=== PATIENT | male | born 1960 | race Caucasian/White ===

== ENCOUNTER → 2018-04-07 | Outpatient (CLI) | payer BC ==
[~2018-04-07] MED LIST: ACETAMINOPHEN500 M1 PO; ATIVAN1 MG PO; DICLOFENAC SODI75 MG PO; FLEXERIL; NEURONTIN 300M300 M2 PO; PERCOCET 5-3251 EACH PO; PREDNISONE 10 M10 M1; VALIUM5 MG PO; VICODIN 5-5001 EACH
--- NOTE | ~2018-04-07 | PAINCON ---
[address] [address] PAIN MANAGEMENT CONSULTATION Name: GEORGEOC Stephanie Room: [facility] Davin#: [id number] Admission: 04/07/18 Attend Phys: Richard Estrada MD Discharge: Date of : 56 Report #: [id number] THIS REPORT FOR: //name// CC: Kin Estrada DATE OF SERVICE: 04/07/2018 CHIEF COMPLAINT: Pain in the left leg with, numbness, weakness, tenderness and unable to stand or work because of the pain. HISTORY: The patient is a 57-year-old gentleman who has returned to the pain clinic for evaluation. The patient noted pain and discomfort in February on about the sixth. He notes that the pain continued to build. It involves his low back on the left side. Pain radiates down the left portion of his leg, has numbness around his knee and experiences weakness as well. Also, has some pain in the upper left groin area. He had pain in his back in 2009. At that time, he underwent a series of epidural steroid injection and noted improvement. He was told at that time that he had herniated disk. Over the last 2 weeks, he has noticed an escalation of pain and discomfort. He has noticed that the pain since that time continues to increase. He is feeling pain down the left leg with numbness and tingling. Left knee area is painful. Also, has some pain and discomfort around the left groin area in the upper portion of the left side of his leg. Denies any outward trauma. Notes the pain is worse when he is standing and going from a sitting to a bending position. If he bends over, he notes that the pain is quite problematic. Pain improves when he is lying on his right side or on his back. Describes it as steady, rhythmic, aching, throbbing and stabbing. Rates it as a 5-6 at this juncture. On average, it is a 6-7. He does work in a factory setting. He states that he does quite strenuous work pushing items, which are quite heavy. ALLERGIES: No known drug allergies. CURRENT MEDICATIONS: Flexeril 10 mg one p.o. t.i.d. p.r.n., diclofenac 25 mg p.r.n., Aleve, Tylenol. PAST MEDICAL HISTORY: Lumbar radicular pain secondary to herniated disk in December 2009. Colon polyp found in the past. PAST SURGICAL HISTORY: Previous herniated disk injection in 2009. SOCIAL HISTORY: He is a [employer] worker. He has been off work since 03/03/2018 secondary to plant shutdown. Scheduled to return to work in March. REVIEW OF SYSTEMS: Questionnaire, generally good health, decreased appetite, fatigue, wears glasses, hearing loss, loss of appetite, abdominal pain, [place] [address] PAIN MANAGEMENT CONSULTATION Name: OC VAZQUEZ Room: [facility]#: [id number] Admission: 04/07/18 Attend Phys: Richard Estrada MD Discharge: Date of : 56 Report #: [id number] of muscles and joints, muscle pain and cramps, back pain, difficulty walking, numbness and tingling sensation in his lower extremities. LABORATORY DATA: MRI of the lumbar spine dated 03/10/2018: 1. L2-L3, there is a diffuse disk bulge. There is left paracentral extrusion type herniation migrating and inferiorly measuring 1.9 cm caudally, 1.2 cm transverse and 0.6 cm AP. There is also mild facet and ligamentum flavum hypertrophy. There is mild left lateral recess narrowing. There is no central stenosis. At the level of herniation, there is left lateral recess narrowing as well. Correlate this with left L3 radicular symptoms. 2. L3-L4, there is a diffuse disk bulge. There is a broad based protrusion on the right with annular fissure extends from paracentral to foramen of 0.3 cm in height. There is slight right lateral recess narrowing, correlates with right L4 radicular symptoms. There is mild bilateral foraminal narrowing of the thecal sac 1.5 cm AP. 3. L4-L5, there is a disk bulge. There is a left subarticular annular fissure. There is a right foraminal protrusion measuring 0.3 cm in height. No canal stenosis. There is moderate right and left foraminal narrowing. Thecal sac 1.5 cm. 4. L5-S1, there is a left foraminal labial or lateral protrusion with an annular fissure, there is facet hypertrophy. There is a synovial cyst on the right measuring 0.8 x 0.5 x 0.7 cm in size. This extends into the foramen, exerts mild mass effect on the exiting nerve root. There is mild right foraminal narrowing. PAIN CLINIC ASSESSMENT/PQRS: 1. History of osteoarthritis. The patient is not being treated for osteoarthritis or rheumatoid arthritis. 2. Height 5 feet 8 inches, weight 183 pounds, BMI is 27.5. 3. Vital signs: Blood pressure 128/85, heart rate 75, respiratory rate 16, room air saturation is 93%, temperature 98.4. 4. Pain intensity 10. 5. Fall risk. The patient has not fallen in the last 3 months. 6. Blood thinner. The patient is not on a blood thinning medication. 7. Hypertension. The patient is not being treated for hypertension. 8. Opioids greater than 6 weeks. The patient is not on an opioid regimen. 9. Risk assessment tool, low for opioid use. 10. Functional assessment tool. 11. Recreational drug use. The patient denies use of recreational drugs. 12. Tobacco: The patient denies use of tobacco. 13. Alcohol: The patient denies alcoholic use. PHYSICAL EXAMINATION: GENERAL: The patient is a well-developed, well-nourished white male. Appears his stated age. He is alert and oriented x 3. Affect is appropriate. [place] [address] PAIN MANAGEMENT CONSULTATION Name: OC VAZQUEZ Room: [facility]#: [id number] Admission: 04/07/18 Attend Phys: Richard Estrada MD Discharge: Date of : 56 Report #: [id number] HEENT: Normocephalic, atraumatic. Extraocular eye muscles intact. Sclerae nonicteric. Mucous membranes are moist. NECK: Without adenopathy or JVD. No bruits. LUNGS: Clear to auscultation without rhonchi or rales. EXTREMITIES: Upper extremity muscle strength judged to be 5/5 for the major muscle groups in the upper extremity. The patient is without significant scoliosis, kyphosis or lordosis. His pain and discomfort in the lower portion of his back with pain that radiates around the left buttocks and down into the L4-L5 dermatomal distribution. The patient states he has some numbness around his knee. He has been experiencing muscle spasms. States that they feel like an earthquake and can last about 20 minutes. They improve and go away. Bending and lifting can exacerbate those spasms. Has some stabbing pain in the left hip. Anselmo's sign was negative on the right, positive on the left. Deep tendon movement of the left hip cause some discomfort in the low back area on the left side. Right side was not problematic. Anterior and posterior spring tests were negative. The patient is able to stand and rise to his heels and to his toes. Forward bending to 30 degrees was limited. The patient said he could not move any further. Noted pain and discomfort in the low back and the buttocks area with some down the lateral side of his leg. Lumbar extension caused increased pain in the back area as well. Left and right lateral bending, left and right lateral rotation all had some discomfort in the left hip area. Deep tendon reflexes in the upper extremity are judged to be +2 bilaterally, trace for the brachioradialis and absent for the triceps. Deep tendon reflexes are +2 on the right knee and absent on the left knee. IMPRESSION: 1. Lumbar radiculopathy with pain and discomfort in the left leg with absent patellar reflex. Increased pain and positive straight leg raise on the left. 2. Past history of lumbar radicular pain in 2009, improved after epidural steroid injection. RECOMMENDATIONS: We discussed treatment option with the patient. Risks and benefits of an epidural steroid injection were discussed. Possible complications of the procedure were reviewed. The patient's MRI was reviewed with him and a model was used. The patient states that he understands. It appears that he has had pain in the left low back area. He is experiencing pain in the L4-L5 dermatomal distribution. At this juncture, I think it would be reasonable to proceed with an epidural steroid injection. The procedure and complications, which could include but are not limited to infection, worsening of pain, no improvement in pain, nerve damage, nerve paralysis were discussed and the patient elects to proceed. PROCEDURE NOTE: The patient was placed in the prone position. He was assisted in getting on the examination table. Fluoroscopy using anterior, posterior as well as lateral viewing were implemented. His back was sterilely prepped at the L4-L5 area. A left paracentral approach was undertaken. A 0.25% [place] [address] PAIN MANAGEMENT CONSULTATION Name: OC VAZQUEZ [id number] Admission: 04/07/18 Attend Phys: Richard Estrada MD Discharge: Date of : 56 Report #: [id number] was infiltrated with a 25-gauge needle to numb the area, then followed by a 17-gauge Tuohy with loss of resistance technique. There was no CSF, heme or paresthesia. A total of 80 mg Depo-Medrol, 40 mg triamcinolone and 2 mL of 0.25% bupivacaine was injected. The patient tolerated the procedure well. There were no complications. He remained in the pain clinic for an appropriate amount of time. The patient will also be given a script to go to physical therapy. Hopefully, his pain will continue to improve, so that he will be able to return to work in a timely fashion. We would like to thank you for letting us participate in his care. We hope he continues to improve. By: [id number]. Juno Estrada MD /nt
== END ==
LOC: M.PC 08:40
DX: M54.16 Radiculopathy, lumbar region (principal); M79.605 Pain in left leg

== ENCOUNTER → 2018-04-26 | Outpatient (CLI) | payer BC ==
--- NOTE | 2018-04-29 13:53 | PAINCON ---
[address] [address] PAIN MANAGEMENT CONSULTATION Name: GEORGEOC Stephanie Room: [facility] Davin#: [id number] Admission: 04/26/18 Attend Phys: Richard Estrada MD Discharge: Date of : 56 Report #: [id number] THIS REPORT FOR: //name// CC: Kin Estrada DATE OF SERVICE: 04/26/2018 CHIEF COMPLAINT: Here for a medication renewal. FOLLOWUP HISTORY: The patient is a 57-year-old gentleman who has been referred to the Pain Clinic for evaluation. The patient has noted pain and discomfort since about 08/24/2017. He has been experiencing pain in the low back area involving his left side. Pain radiates down into this left portion of his leg with numbness around his knee with weakness. Notes some upper left groin pain. He has undergone series of epidural steroid injections in the past back in 2009. He noted some improvement at that time. He has difficulty with carrying out activities of daily living. Bending, sitting, pushing all exacerbate his pain. 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 All of these activities such as bending, pushing, lifting heavy items have been problematic. He feels that the activities at his job, which required repetitive bending, lifting, pushing, pulling, buggies and ____ as well as lifting items greater than about 10 pounds are quite problematic at this juncture. ALLERGIES: No known drug allergies. MEDICATIONS: Flexeril 10 mg 1 p.o. t.i.d. p.r.n., diclofenac 25 mg p.r.n., Aleve, Tylenol. PAIN CLINIC ASSESSMENT/PQRS: 1. History of osteoarthritis. The patient is not being treated for osteoarthritis or rheumatoid arthritis. 2. Height 5 feet 8, weight 188 pounds, BMI is 28. 3. Vital signs: Blood pressure 146/92, heart rate 72, respiratory rate 16, room air saturation is greater than 95, temperature 98.2. 4. Fall risk. The patient has not fallen in the last 3 months. 5. Blood thinner. The patient is not on a blood thinning medication. 6. Hypertension. The patient is not being treated for hypertension. 7. Opioid greater than 6 weeks. The patient is now on opioid regimen. 8. Risk assessment tool low for opioid use. 9. Functional assessment tool. 10. Recreational drug use. The patient denies use of recreational drugs. 11. Tobacco: The patient denies use of tobacco. 12. Alcohol: The patient denies use of alcoholic beverages. PHYSICAL EXAMINATION: [place] [address] PAIN MANAGEMENT CONSULTATION Name: OC VAZQUEZ Room: [facility]#: [id number] Admission: 04/26/18 Attend Phys: Richard Estrada MD Discharge: Date of : 56 Report #: [id number] GENERAL: The patient is a well-developed, well-nourished white male. Appears his stated age. He is alert and oriented x 3. His affect is appropriate. Speech is fluent. HEENT: Normocephalic, atraumatic. Extraocular eye muscles intact. Sclerae nonicteric. Mucous membranes are moist without moist. Hearing is within normal limits. LUNGS: Clear to auscultation without rhonchi or rales. EXTREMITIES: Upper extremity muscle strength is judged to be 5/5 for the major muscle groups in the upper extremity without significant scoliosis, kyphosis or lordosis. The patient has pain and discomfort in his lower portion of his back with pain that radiates down and around his left buttock and down into the L4-L5 dermatomal distribution. The patient notes some numbness and tingling in the area of his knee. He has been experiencing muscle spasms. Describes the spasms as earthquakes. Anselmo's sign was negative on the right, positive on the left. Deep tendon reflexes. The patient has limited ability to lean forward left and right lateral bending, left and right lateral rotation are limited as well. Deep tendon reflexes are jute bag clipper +2 on the right knee and absent on the left knee. IMPRESSION: 1. Lumbar radiculopathy with pain and discomfort of the left knee with absent patellar reflex. 2. Increased pain with positive straight leg raise on the left. 3. Past history of lumbar radiculopathy in 2009, improved with epidural steroid injection. RECOMMENDATION: The patient has undergone epidural steroid injection. He returns today indicating that the pain has improved. Feels that things are about 50% better, but still problematic. Has lost strength in his left leg. He has continued pain in the left hip area. Has trouble bending his spine. He continues to practice with strengthening exercises for his lower extremity. RECOMMENDATIONS: We discussed treatment options with the patient. At this juncture, we would recommend that he refrain from repetitive bending and lifting; not lift greater than 10 pounds, refrain from pushing bodies and chondral until his pain is more controlled. He will follow up in the near future. The patient was last seen on 04/27/2018 and will return for evaluation on 05/12/2018 with the possibility of undergoing another epidural steroid injection. We would like to thank you for letting us participate in his care. We hope he continues to improve. <ELECTRONICALLY SIGNED> By: Richard Estrada MD 04/29/18 [id number]. Juno Estrada MD /nt
== END ==
LOC: M.PC 04-21 11:50
DX: M54.16 Radiculopathy, lumbar region (principal); M79.605 Pain in left leg; M19.90 Unspecified osteoarthritis, unspecified site; I10 Essential (primary) hypertension; Z79.899 Other long term (current) drug therapy

== ENCOUNTER → 2018-05-12 | Outpatient (CLI) | payer BC ==
--- NOTE | ~2018-05-12 | PAINCON ---
[address] [address] PAIN MANAGEMENT CONSULTATION Name: GEORGEOC Stephanie Room: [facility] Jin#: [id number] Admission: 05/12/18 Attend Phys: Richard Estrada MD Discharge: Date of : 56 Report #: [id number] THIS REPORT FOR: //name// CC: Kin Estrada DATE OF SERVICE: 05/12/2018 FOLLOWUP HISTORY: Here for medication renewal and evaluation. HISTORY: The patient is a 57-year-old gentleman who has been seen in the pain clinic because of pain and discomfort in his low back area and down into the left side. The patient states that he has been having some discomfort since 08/24/2017. He has had pain that radiated down into his left leg with numbness and tingling. Notes some weakness around the area of his knee. He also had some left upper groin pain on the left side. He underwent an epidural steroid injection and has gleaned benefit from the pain in the left leg, but continues to have some pain in the low back, left hip, and particularly in the left groin area. Continues to have some weakness. Has had some difficulty getting up and down stairs because of the weakness and discomfort in the leg. Again, the left groin pain continues to be most problematic portion. Numbness in the left knee has improved and pretty much resolved. Rates his pain as 3/10 at this juncture. He feels that the gabapentin, Flexeril and the diclofenac are still helpful. He has returned today for evaluation. ALLERGIES: No known drug allergies. MEDICATIONS: Flexeril 10 mg 1 p.o. t.i.d., diclofenac 25 mg p.r.n., gabapentin 300 mg t.i.d., Aleve p.r.n., and Tylenol p.r.n. PAIN CLINIC ASSESSMENT AND PQRS: 1. History of osteoarthritis. The patient is not being treated for osteoarthritis or rheumatoid arthritis. 2. Height 5 feet 8 inches, weight 186 pounds, BMI is 28.8. 3. Vital signs: Blood pressure 124/84, heart rate 81, respiratory rate 16, room air saturation is 96%, and temperature 98.1. 4. Pain intensity 3/10, mostly in the left groin area. 5. Fall risk. The patient has not fallen in the last 3 months. 6. Blood thinner. The patient is not on a blood thinning medication. 7. Hypertension. The patient is not being treated for hypertension. 8. Opioids greater than 6 weeks. The patient is not on a chronic opioid regimen. 9. Risk assessment tool, low for opioid use. 10. Functional assessment tool. 11. Recreational drug use. The patient denies use of recreational drugs. 12. Tobacco: The [place] [address] PAIN MANAGEMENT CONSULTATION Name: OC VAZQUEZ Room: [facility]#: [id number] Admission: 05/12/18 Attend Phys: Richard Estrada MD Discharge: Date of : 56 Report #: [id number] 13. Alcohol: The patient denies use of alcoholic beverages. PHYSICAL EXAMINATION: GENERAL: The patient is well-developed, well-nourished white male. Appears his stated age. He is alert and oriented x 3. His affect is appropriate. Speech is fluent. HEENT: Normocephalic, atraumatic. Extraocular eye muscles are intact. Sclerae nonicteric. Mucous membranes are moist. LUNGS: Clear to auscultation without rhonchi or rales. EXTREMITIES: Upper extremity muscle strength judged to be 5/5 for the major muscle groups in the upper extremity. The patient is without scoliosis, kyphosis, or lordosis. Has some pain and discomfort in the lower portion of his back. Has some pain that radiates around the left buttocks area and down into the L4-L5 dermatomal distribution, which has improved. The patient does have some numbness and tingling/discomfort in the left ilioinguinal area. The patient notes going from a supine to a sitting position can increase pain and discomfort in the left ilioinguinal area. Palpation in this area does reproduce a component of his pain, which is most problematic. IMPRESSION: 1. History of lumbar radiculopathy with improvement after the last epidural steroid injection. 2. Pain in the left ilioinguinal area. 3. History of lumbar radiculopathy in 2009, improved after a series of epidural steroid injections. 4. On medical leave from work secondary to pain. RECOMMENDATIONS: We discussed treatment options with the patient. Risks and benefits of a left ilioinguinal nerve block was discussed. A possible complication of the procedure, which could include worsening of pain, no improvement in pain, nerve damage, bleeding were discussed. The patient appears to have pain in this area and I think proceeding with an ilioinguinal nerve block would be a reasonable option today. PROCEDURE NOTE: The patient was taken to the procedure area. He was assisted in getting on the examination table. He was placed in the supine position. Trying to go from a supine to a sitting position causes increased pain and discomfort in the left ilioinguinal area. This area was sterilely prepped with a Betadine solution. A 25-gauge needle was then used to inject the area of the ilioinguinal nerve after movement and placement of the needle 1 cm below the ilioinguinal area and midline about 1 cm. The patient states that this did reproduce his pain and discomfort. A total of 40 mg triamcinolone with 6 mL of 0.25% bupivacaine was undertaken. The patient tolerated the procedure well. There were no complications. He remained in the pain clinic for an appropriate amount of time. He will follow up in the future as needed. The patient may return to work and [place] [address] PAIN MANAGEMENT CONSULTATION Name: OC VAZQUEZ Room: [facility] Davin#: [id number] Admission: 05/12/18 Attend Phys: Richard Estrada MD Discharge: Date of : 56 Report #: [id number] We would like to thank you for letting us participate in his care. We hope he continues to improve. By: [id number]. Juno Estrada MD /nt
== END | disposition home or self-care (01) ==
LOC: M.PC 05-10 12:50
DX: M54.16 Radiculopathy, lumbar region (principal); Z79.899 Other long term (current) drug therapy

== ENCOUNTER → 2018-08-11 | Outpatient (CLI) | payer BC ==
--- NOTE | ~2018-08-11 | PAINCON ---
[address] [address] PAIN MANAGEMENT CONSULTATION Name: GEORGEOC L Room: [facility] B[facility] Jin#: [id number] Admission: 08/11/18 Attend Phys: Richard Estrada MD Discharge: Date of : 56 Report #: [id number] THIS REPORT FOR: //name// CC: Kin Estrada DATE OF SERVICE: 08/11/2018 FOLLOWUP HISTORY: I am having some pain in the left low back and in the right groin area. It improved after the last injection. HISTORY: The patient is a 58-year-old gentleman who has been seen in the pain clinic because of lumbar radiculopathy. He has undergone epidural steroid injections. He returns today indicating that his pain has recurred. Overall, he has gleaned benefit from the last injection. He notes that he is having some pain in the left area that wraps around into the left groin area. Has some pain in the lower portion of his back. There is perception of some popping in the low back area. There is no pain associated with it. He has noted some increased pain [place]. He feels that activities where he is bending over at work may have exacerbated his discomfort as well. He has had some right leg spasms. That spasm has been problematic for years. The pain in the left hip, which is waxing and waning, improved after the last injection. He would like to proceed with an injection. He has been using xcct-[id number]-fkemrsu medicines like Osteo Bi-Flex. ALLERGIES: No known drug allergies. CURRENT MEDICATIONS: 1. Gabapentin 300 mg. He stopped this medication, he is not sure whether ____ it was working. 2. Aleve. 3. Diclofenac. 3. Aspirin. 4. Osteo Bi-Flex. PAIN CLINIC ASSESSMENT AND PQRS: 1. The patient is not being treated for osteoarthritis. He is not being treated for rheumatoid arthritis. 2. Height 5 feet 8 inches, weight 182 pounds, BMI is 27. 3. Vital signs, blood pressure 130/77, heart rate 74, respiratory rate 16, room air saturation 95%, temperature 98.3. 4. Pain intensity 4/10. 5. Fall history: The patient has not fallen in the last 3 months. 6. Blood thinner. The patient is not on a blood thinning medication. 7. Hypertension. The patient is not being treated for hypertension. 8. Risk assessment tool, [place] [address] PAIN MANAGEMENT CONSULTATION Name: OC VAZQUEZ Room: [facility]#: [id number] Admission: 08/11/18 Attend Phys: Richard Esrtada MD Discharge: Date of : 56 Report #: [id number] 9. Functional assessment tool. 10. Recreational drug use. The patient denies use of recreational drugs. 11. Tobacco: The patient denies use of tobacco. 12. Alcohol: The patient denies use of alcoholic beverages. PHYSICAL EXAMINATION: GENERAL: The patient is a well-developed, well-nourished white male. Appears his stated age. He is alert and oriented x 3. His affect is appropriate. Speech is fluent. HEENT: Normocephalic, atraumatic. Extraocular eye muscles intact. Sclerae nonicteric. Mucous membranes are moist. NECK: Without adenopathy or JVD. LUNGS: Clear to auscultation without rales or rhonchi. MUSCULOSKELETAL: Upper extremity muscle strength is judged to be 5/5 for the major muscle groups in the upper extremity. The patient without significant scoliosis, kyphosis, or lordosis. The patient has pain and discomfort in the lower portion of his back in the L4-L5 dermatomal distribution with some radiation down into his left hip area. Also, has some discomfort and complains of pain in the left groin area. After the last epidural steroid injection. He noted some improvement in the groin area pain. Lower extremity muscle strength judged to be 5/5 in the major muscle groups in the lower extremity. IMPRESSION: 1. History of lumbar radiculopathy at the L4-L5 area, improved with epidural steroid injection. 2. Pain in the left ilioinguinal area. 3. History of lumbar radiculopathy in 2009, improved after a series of epidural steroid injection. 4. The patient has returned to work and is off medical leave. RECOMMENDATIONS: We discussed treatment options with the patient. Risks and benefits of an epidural steroid injection were discussed. They include but are not limited to infection, worsening pain, no improvement in pain, nerve damage, bleeding, spinal headache and the patient elects to proceed. PROCEDURE NOTE: The patient was taken to the procedure area. He was assisted in getting on examination table. His back was sterilely prepped with a Betadine solution. A pillow had been placed under his abdomen to improve positioning. Fluoroscopy using anterior, posterior as well as lateral viewing were implemented. A 17-gauge Tuohy with loss of resistance technique was used to gain access to the L4-L5 area using the mid laminar approach. Aspiration was negative. A total of 80 mg Depo-Medrol, 40 mg triamcinolone and 2 mL of 0.25% bupivacaine was injected. The patient tolerated the procedure well. He remained in the pain clinic for an appropriate amount of time. He will follow up in the future as needed. The patient has been given a script for physical therapy. He will go to physical therapy 3 times a week for 3 [place] [address] PAIN MANAGEMENT CONSULTATION Name: OC VAZQUEZ Stephanie Room: [facility]#: [id number] Admission: 08/11/18 Attend Phys: Richard Estrada MD Discharge: Date of : 56 Report #: [id number] of improving his pain condition. Eight seconds fluoro time was used. The patient's pain decreased to 0 at the time of discharge. We would like to thank you for letting us participate in his care. We hope he continues to improve. By: [id number]. Juno Estrada MD /nt
== END | disposition home or self-care (01) ==
LOC: M.PC 10:10
DX: M54.16 Radiculopathy, lumbar region (principal); G89.29 Other chronic pain; R10.30 Lower abdominal pain, unspecified; Z79.82 Long term (current) use of aspirin; Z79.899 Other long term (current) drug therapy; Z98.890 Other specified postprocedural states

== ENCOUNTER → 2019-08-01 | Outpatient (CLI) | payer BC | END | disposition home or self-care (01) | LOC: M.PC 05:03 | DX: M54.16 Radiculopathy, lumbar region (principal); G89.29 Other chronic pain; Z98.890 Other specified postprocedural states; Z79.899 Other long term (current) drug therapy ==

== ENCOUNTER → 2020-10-18 | Outpatient (CLI) | payer OTHER ==
[~2020-10-18] MED LIST changes: +ALEVE220 M1 PO; +ASPIR 8181 M1 PO
== END ==
LOC: M.CT 09-27 09:00
PROVIDERS: ATTEND Nurse Practitioner Family
DX: Z13.6 Encounter for screening for cardiovascular disorders (principal); I25.10 Atherosclerotic heart disease of native coronary artery without angina pectoris